=== PATIENT | male | born 1985 | race Caucasian/White ===

== ENCOUNTER 2023-03-13 10:27 | Emergency (ER) | payer OTHER ==
[~2023-03-13] VITALS: Ht 188 cm; Wt 81.7 kg
[~2023-03-13 10:27] MED LIST: Bactrim Ds Tab1 EACH PO; IBUP600 PO; Norco 5-325 Ta1 EACH PO; OXYACE5T PO
[2023-03-13 10:45] VITALS: BP 125/74
[2023-03-13] MEDS ORDERED: SULTRIDS PO (12:03)
[2023-03-13] MEDS ORDERED: ACET500 PO (12:03)
[2023-03-13] MEDS ORDERED: IBUP400 PO (12:03)
== END 2023-03-13 12:22 | disposition home or self-care (01) ==
LOC: ER 10:27
DX: L03.116 Cellulitis of left lower limb (principal); L03.115 Cellulitis of right lower limb; R60.0 Localized edema; B19.20 Unspecified viral hepatitis C without hepatic coma; F17.200 Nicotine dependence, unspecified, uncomplicated
CPT/HCPCS: 82947; 93970; 96372; 99284-25; A9270; J1885